=== PATIENT | female | born 1930 | race Caucasian/White ===

== ENCOUNTER 2019-12-12 11:45 | Inpatient (IN) | payer MEDICARE, OTHER ==
[~2019-12-12] VITALS: Ht 162.6 cm; Wt 64.4 kg
[2019-12-12] MEDS ORDERED: ASPIRIN EC325 M1 PO (11:53)
[2019-12-12] MEDS ORDERED: OMEPRAZOLE20 M1 PO (11:53)
[2019-12-12] MEDS ORDERED: MOBIC7.5 MG PO (11:53)
[2019-12-12] MEDS ORDERED: NORVASC2.5 MG PO (11:53)
[2019-12-12] MEDS ORDERED: LACTOBACILLUS ACIDOPHILUS (11:53)
[2019-12-12] MEDS ORDERED: ZOCOR20 MG PO (11:53)
[2019-12-12] MEDS ORDERED: ALL DAY ALLERGY (11:53)
[2019-12-12 14:10] LABS: BILIRUBIN NEGATIVE (NEGATIVE); GLUCOSE NEGATIVE (NEGATIVE); KETONE NEGATIVE (NEGATIVE); NITRITE NEGATIVE (NEGATIVE); UROBILINOGEN NORMAL (NORMAL)
[2019-12-12 14:11] LABS: BACTERIA FEW /hpf (NEGATIVE); EPITHELIAL CELLS OCC /hpf (0-5); RED CELLS - URINE 0-5 /hpf (0-5); WHITE CELLS - URINE OCC /hpf (NEGATIVE)
[2019-12-12 14:18] LABS: ANION GAP 13.4 mmol/L (8-16); CALCIUM 9.1 mg/dL (8.5-10.1); CARBON DIOXIDE 25.2 mmol/L (21.0-32.0); CREATININE - SERUM 1.1 mg/dL (0.6-1.3); POTASSIUM - SERUM 3.6 mmol/L (3.5-5.1)
[2019-12-12 14:19] LABS: APTT 33.1 SECONDS (22.8-39.4); INR 1.06 (0.85-1.17); PROTIME 13.7 SECONDS (11.6-15.0)
[2019-12-12 14:24] LABS: BILIRUBIN - TOTAL 0.66 mg/dL (0.2-1.3); PROTEIN - SERUM 8.2 g/dL (6.4-8.2)
[2019-12-12 14:25] LABS: BASOPHILS 0 % (0-2); EOSINOPHILS 1.6 % (0-7); HEMATOCRIT 43.1 % (36.0-48.0); HEMOGLOBIN 13.7 g/dL (12-16); LYMPHOCYTES 9.6 % (15-50); MCH 29.3 pg (26.0-34.0); MCHC 31.8 g/dL (31.0-37.0); MCV 92.3 fL (80.0-100.0); MEAN PLATELET VOLUME 11.7 fL (7.4-10.4); MONOCYTES 4.8 % (2-11); PLATELET COUNT 82 10x3/uL (130-400); RBC 4.67 10x6/uL (4.00-5.40); RDW 13.3 % (11.5-14.5); WBC 12.7 10x3/uL (4.8-10.8)
[2019-12-12 14:51] LABS: PLATELET ESTIMATE DECREASED
--- NOTE | 2019-12-12 14:56 | NUR ---
RECEIVED TO ROOM 2206 VIA STRETCHER FROM ER. A/O X3. SKIN INTACT. IMMOBILYZER IN PLACE TO RIGHT WRIST. DENIES NEEDS.
[2019-12-12 14:59] VITALS: BP 145/63; BMI 24.4
--- NOTE | 2019-12-12 18:00 | NUR ---
RESTING IN BED, 5 LB TRACTION TO LEFT LEG, NO DISTRESS NOTED, TOES PINK AND WARM, CONT TO MONITOR
[2019-12-12 18:20] VITALS: BP 129/72
[2019-12-12 20:00] VITALS: BP 165/80
[2019-12-13] VITALS: BP 126/67
[2019-12-13 04:00] VITALS: BP 179/92
--- NOTE | 2019-12-13 05:47 | NUR ---
CANCELLED NPO AFTER MIDNIGHT, NO SURGERY TODAY PER DR. MADISON. MRI MUST BE DONE FIRST.
[2019-12-13 05:49] LABS: BASOPHILS 0.1 % (0-2); EOSINOPHILS 3.5 % (0-7); HEMATOCRIT 42.8 % (36.0-48.0); HEMOGLOBIN 13.1 g/dL (12-16); IMMATURE GRANULOCYTES 0.3 % (0-5); LYMPHOCYTES 14.3 % (15-50); MCH 28.4 pg (26.0-34.0); MCHC 30.6 g/dL (31.0-37.0); MCV 92.8 fL (80.0-100.0); MEAN PLATELET VOLUME 12.7 fL (7.4-10.4); MONOCYTES 7.8 % (2-11); RBC 4.61 10x6/uL (4.00-5.40); RDW 13.4 % (11.5-14.5); WBC 10.6 10x3/uL (4.8-10.8)
[2019-12-13 05:55] LABS: PLATELET COUNT 202 10x3/uL (130-400)
[2019-12-13 06:15] LABS: ANION GAP 12.1 mmol/L (8-16); CALCIUM 8.8 mg/dL (8.5-10.1); CREATININE - SERUM 1.2 mg/dL (0.6-1.3); POTASSIUM - SERUM 4.1 mmol/L (3.5-5.1)
--- NOTE | 2019-12-13 06:30 | NUR ---
INFORMED PT OF NO SURGERY TODAY AND THAT SHE CAN EAT. PULLED PT UP IN BED AND REPOSITIONED. BROUGHT LARGE ICE WATER AND PUT IN SPECIAL REQUEST FOR BREAKFAST. PT RATES PAIN 0/10 UNLESS SHE IS MOVING. NO OTHER NEEDS. WILL CONTINUE TO MONITOR.
--- NOTE | 2019-12-13 08:00 | NUR ---
ASSESSMENT PER FLOW SHEET. PATIENT IS WITHOUT DISTRESS.FALL PREVENTION IN PLACE WITH BED ALARM. DOOR OPEN
[2019-12-13 09:50] VITALS: BP 112/64
[2019-12-13 13:40] VITALS: BP 127/64
[2019-12-13 16:00] VITALS: BP 97/49
--- NOTE | 2019-12-13 19:31 | NUR ---
PATIENT RESTING IN BED WITH NO S/S OF DISTRESS AND DENIES NEEDS AT THIS TIME. BED IN LOWEST POSITION AND CALL LIGHT WITHIN REACH. ENCOURAGED THE PATIENT TO CALL IF SHE HAS NEEDS. WILL CONTINUE TO MONITOR.
[2019-12-13 20:00] VITALS: BP 157/78
[2019-12-14] VITALS: BP 142/76
--- NOTE | 2019-12-14 | NUR ---
ASSISTED PATIENT ON AND OFF BEDPAN. PATIENT VOIDED A SMALL AMOUNT. PATIENT DENIES OTHER NEEDS AT THIS TIME. REMINDED PATIENT NOTHING BY MOUTH. PATIENT VERBALIZED UNDERSTANDING AND DENIES OTHER NEEDS AT THIS TIME. ENCOURAGED THE PATIENT TO CALL IF SHE HAS NEEDS. WILL CONTINUE TO MONITOR.
[2019-12-14 04:00] VITALS: BP 141/72
--- NOTE | 2019-12-14 04:23 | NUR ---
CHG BATH COMPLETED
[2019-12-14 04:35] LABS: BASOPHILS 0.2 % (0-2); EOSINOPHILS 8.7 % (0-7); HEMATOCRIT 42.4 % (36.0-48.0); HEMOGLOBIN 13.1 g/dL (12-16); IMMATURE GRANULOCYTES 0.2 % (0-5); LYMPHOCYTES 16.7 % (15-50); MCH 28.5 pg (26.0-34.0); MCHC 30.9 g/dL (31.0-37.0); MCV 92.4 fL (80.0-100.0); MEAN PLATELET VOLUME 12.4 fL (7.4-10.4); MONOCYTES 9.6 % (2-11); NEUTROPHILS 64.6 % (40-80); PLATELET COUNT 179 10x3/uL (130-400); RBC 4.59 10x6/uL (4.00-5.40); RDW 13.5 % (11.5-14.5); WBC 8.6 10x3/uL (4.8-10.8)
[2019-12-14 04:54] LABS: ANION GAP 11.3 mmol/L (8-16); CALCIUM 8.5 mg/dL (8.5-10.1); CARBON DIOXIDE 25.3 mmol/L (21.0-32.0); CREATININE - SERUM 1.3 mg/dL (0.6-1.3); POTASSIUM - SERUM 3.6 mmol/L (3.5-5.1)
[2019-12-14 09:05] VITALS: BP 156/74
[2019-12-14 12:38] VITALS: Ht 162.6 cm; Wt 64.4 kg
[2019-12-14 12:54] VITALS: BP 167/98
[2019-12-14 15:35] VITALS: BP 154/87
--- NOTE | 2019-12-14 19:30 | NUR ---
ASSISTED ONTO BEDPAN TO VOID BUT COULDNT. WILL CONT TO MONITOR.
--- NOTE | 2019-12-14 20:25 | NUR ---
LYING IN BED. ALERT AND ORIENTED X4. RESP EVEN AND NONLABORED. O2 @ 3L/NC. DSRG X3 NOTED TO LT HIP WITH OLD DRAINAGE MARKED. BRACE NOTED TO RT WRIST WITH BRUISING. DENIES PAIN AT THIS TIME. NONPROD COUGH AT TIMES. SALINE LOCK NOTED TO TO LT FOREARM. DENIES PAIN. SR ELEVATED X2. CL IN REACH. BED ALARM ON FOR PT SAFETY.
[2019-12-14 20:34] VITALS: BP 149/83
[2019-12-15] VITALS (7 sets, daily range): BP systolic 132–149; BP diastolic 65–76
--- NOTE | 2019-12-15 00:10 | NUR ---
UNABLE TO URINATE SINCE SURGERY. BLADDER SCANNED AT THIS TIME. STRAIGHT CATH INSERTED PER STERILE TECHNIQUE WITH IMMEDIATED RETURN OF 600 ML OF CLEAR YELLOW URINE. STATES SHE FEELS BETTER
--- NOTE | 2019-12-15 00:53 | NUR ---
SALINE LOCK OUT IN LT FOREARM. 22G INSERTED IN LT AC AFTER ATTEMPT X2. PT DAMON WELL.
--- NOTE | 2019-12-15 03:00 | NUR ---
RESTING WITH EYES CLOSED. RESP NONLABORED. NO DISTRESS. O2 IN USE. CL IN REACH.
[2019-12-15 05:32] LABS: BASOPHILS 0.1 % (0-2); EOSINOPHILS 4.5 % (0-7); HEMATOCRIT 38.5 % (36.0-48.0); HEMOGLOBIN 12.1 g/dL (12-16); IMMATURE GRANULOCYTES 0.3 % (0-5); LYMPHOCYTES 15.4 % (15-50); MCH 28.9 pg (26.0-34.0); MCHC 31.4 g/dL (31.0-37.0); MCV 91.9 fL (80.0-100.0); MEAN PLATELET VOLUME 12.8 fL (7.4-10.4); MONOCYTES 11.8 % (2-11); NEUTROPHILS 67.9 % (40-80); PLATELET COUNT 173 10x3/uL (130-400); RBC 4.19 10x6/uL (4.00-5.40); RDW 13.5 % (11.5-14.5); WBC 10.1 10x3/uL (4.8-10.8)
[2019-12-15 05:45] LABS: ANION GAP 15.2 mmol/L (8-16); CALCIUM 8.3 mg/dL (8.5-10.1); CARBON DIOXIDE 23.6 mmol/L (21.0-32.0); CREATININE - SERUM 1.2 mg/dL (0.6-1.3); POTASSIUM - SERUM 3.8 mmol/L (3.5-5.1)
--- NOTE | 2019-12-15 07:10 | NUR ---
REC'D IN WALKING ROUND PT RESTING WELL AT THIS TIME. RESP EVEN AND UNLABORED WITH NO DISTRESS NOTED. CAN EXPRESS NEEDS AN WANTS. NO C/O NOTED OR VOICED. ASSESSMENT COMPLETED. DRESSING NOTED TO LEFT HIP. BRACE NOTED TO LEFT WRIST. C/L IN REACH AT BEDSIDE.
--- NOTE | 2019-12-15 10:37 | NUR ---
I have reviewed this patient and I concur with the Shift Assessment completed by the Licensed Practical Nurse today this shift.
--- NOTE | 2019-12-15 12:22 | NUR ---
REHAB PRESCREENING Rehab referral received and chart reviewed. Ms. Perry is a good candidate for ARU. She is currently POD 1. Rehab will begin screen and accept her if she is willing to come and when her physicians feel she is appropriate for discharge. Thank you for this referral! Denita Ray, FILM PROCESSING UTILITY WORKER Rehab PD
--- NOTE | 2019-12-15 15:36 | NUR ---
PT TRANSFERRED DOWN TO MED 3 AT THIS TIME. REPORT CALLED AND GIVEN TO CHARGE NURSE. THIS NURSE INFORMED M3 NURSE OF PT INABILITY TO URINATE AT THIS TIME WITH TWO ATTEMPTS MADE TO CATH HER BUT WAS UNSUCCESSFUL.
--- NOTE | 2019-12-15 15:45 | NUR ---
PT TRANSFERRED FROM 2206 TO ROOM 1210. PT ALERT AND ORIENTED X 4. RESP EVEN AND UNLABORED. PT REPORTS PAIN 3/10 AT THIS TIME. SALINE LOC TO LEFT AC. SITE WITHOUT REDNESS OR EDEMA. DRESSING TO LEFT HIP WITH SMALL AMOUNT OF DRAINAGE NOTED. PULSES PALPABLE. ORIENTED TO ROOM. PT DENIES FURTHER NEEDS AT THIS TIME. CL WITHIN REACH. ENCOURAGED TO CALL WITH NEEDS.
--- NOTE | 2019-12-15 15:48 | NUR ---
OT NOTE: PT REQUIRED MAX A WITH BED MOB TASKS. PT COMPLETED FACE HYGIENE WITH SET UP. [id number] THANK YOU,KAMILA JAY
--- NOTE | 2019-12-15 17:40 | NUR ---
PT BLADDER SCANNED DUE TO INABILITY TO VOID. 375ML IDENTIFIED IN BLADDER. ATTEMPTED TO PLACE A 16 FR ROLBES CATHETER IN PT VIA STERILE TECHNIQUE, BUT UNSUCCESSFUL AT THIS TIME. CONTACTED CELY IN ICU ASKING FOR ASSISTANCE WITH PLACEMENT. SHE REPORTS SHE WILL COME AND ATTEMPT CATH PLACEMENT WHEN ABLE.
--- NOTE | 2019-12-15 20:25 | NUR ---
PLACED 16F ROBLES CATH. PLACED SCD'S ON PATIENT. GAVE PATIENT IS AND INSTRUCTED ON USE. PATIENT DENIES OTHER NEEDS AT THIS TIME. BED IN LOWEST POSITION AND CALL LIGHT WITHIN REACH. ENCOURAGED THE PATIENT TO CALL IF SHE HAS NEEDS. WILL CONTINUE TO MONITOR.
[2019-12-16 04:11] VITALS: BP 137/74
[2019-12-16 05:03] LABS: BASOPHILS 0.3 % (0-2); EOSINOPHILS 6.6 % (0-7); HEMATOCRIT 37.3 % (36.0-48.0); HEMOGLOBIN 11.6 g/dL (12-16); IMMATURE GRANULOCYTES 0.3 % (0-5); LYMPHOCYTES 16.9 % (15-50); MCH 28.4 pg (26.0-34.0); MCHC 31.1 g/dL (31.0-37.0); MCV 91.4 fL (80.0-100.0); MEAN PLATELET VOLUME 12.7 fL (7.4-10.4); MONOCYTES 13.5 % (2-11); NEUTROPHILS 62.4 % (40-80); PLATELET COUNT 187 10x3/uL (130-400); RBC 4.08 10x6/uL (4.00-5.40); RDW 13.5 % (11.5-14.5); WBC 11.2 10x3/uL (4.8-10.8)
[2019-12-16 05:37] LABS: ANION GAP 15.4 mmol/L (8-16); CALCIUM 8.5 mg/dL (8.5-10.1); CARBON DIOXIDE 23.4 mmol/L (21.0-32.0); CREATININE - SERUM 1.2 mg/dL (0.6-1.3); POTASSIUM - SERUM 3.8 mmol/L (3.5-5.1)
[2019-12-16 07:44] VITALS: BP 145/71
--- NOTE | 2019-12-16 07:51 | NUR ---
AWAKE AND ALERT. ORIENTED X3. NO C/O AT THIS TIME. LUNGS ARE CLEAR BILATERALLY, NO COUGH NOTED. REPORTS USING IS INSTRUCTED. SKIN IS INTACT WITHOUT REDNESS EXCEPT INCISION TO LEFT HIP WHICH HAS A DRY INTACT DRESSING IN PLACE. NO C/O NUMBNESS OR TINGLING AT THIS TIME. SL TO LEFT AC IS PATENT WITHOUT REDNESS AT INSERTION SITE. IMMOBILYZER IN PLACE TO RIGHT WRIST. ROBLES PATENT WITH MATTEO COLORED CLEAR URINE. DENIES NEEDS.
--- NOTE | 2019-12-16 09:27 | OP ---
PATIENT NAME: ARNOLD PEÑA MEDICAL RECORD: [id number] :[birth year] LOCATION:D.M3 D.1210 ADMISSION DATE:12/12/19 SURGEON: REGINE MADISON MD DATE OF OPERATION: 12/14/2019 PREOPERATIVE DIAGNOSIS: Intertrochanteric fracture of the left hip. POSTOPERATIVE DIAGNOSIS: Intertrochanteric fracture of the left hip. PROCEDURE: Cephalomedullary fixation for left intertrochanteric hip fracture (gamma nail). SURGEON: Regine Madison MD SOCIAL INSURANCE ADVISER: GORDON Edward INTRAOPERATIVE COMPLICATIONS: None. SUMMARY OF PATHOLOGIC FINDINGS: Consistent with preoperative radiographs, CT scan and MRI, the patient had a very minimally displaced intertrochanteric hip fracture that required fixation for ambulation. IMPLANTS USED: Gamma 3 nail. OPERATIVE SUMMARY IN DETAIL: After obtaining the appropriate preoperative orthopedic surgery consent as well as anesthetic consultation, evaluation and clearance, the patient was brought to the operating room and while in the hospital bed, she was adequately anesthetized, intubated, moved to the fracture table. She was held firmly to the fracture table using the belt and strap system. The patient's left leg was placed in the traction boot. The right leg was placed in the well leg wadsworth. Under fluoroscopic AP and lateral planes, the patient was seen to have an adequate reduction. The hip was then prepped and draped in routine sterile fashion. A small incision was made at the tip of the greater trochanter. A ball-tipped guidewire was passed. The appropriate reaming was then followed by placement of the nail to an inferior low position. Guidewire was put into place. The appropriate reaming was then followed by placement of the compression screw. Derotational device was then dropped and the compression screw was compressed. Distal locking guide was put in using the distal locking guide. Having completed this, radiographs were taken and submitted for radiologist review. The wounds irrigated and closed with #1 Vicryl, 2-0 Vicryl and skin lisa by GORDON Edward. The patient was awakened and taken to recovery room in stable condition. All final needle and sponge counts were correct. TRANSINT:[id number] Voice Confirmation ID: [id number] DOCUMENT ID: [id number] REGINE MADISON MD at 0927 CC: [id number] DICTATION DATE: 12/15/19 1255 CASKET TRIMMER: 12/15/19 1645 ADM IN [facility] [address] [id number]
--- NOTE | 2019-12-16 09:30 | NUR ---
ATE ABOUT HALF OF BREAKFAST. TOOK AM MEDS IN APPLESAUCE. REPORTS SWALLOWING DIFFICULTY THAT IS NOT NEW. WILL MONITOR.
--- NOTE | 2019-12-16 11:08 | NUR ---
STANDING AT BEDSIDE WITH PT.NO C/O AT THIS TIME.
[2019-12-16 12:30] VITALS: BP 127/70
--- NOTE | 2019-12-16 13:28 | NUR ---
ATE ONLY ABOUT 10%OF LUNCH BUT DRANK AN ENTIRE ENSURE. DENIES NEEDS.
--- NOTE | 2019-12-16 13:48 | NUR ---
Nutrition Follow-up: POD 2 L hip gamma nail. Pt reports decreased appetite. Ate ~50% of breakfast this AM, but only ~10% of lunch with an entire Ensure. C/o some difficulty chewing/swallowing; reports previous esophageal dilation. Diet: Regular Wt: 142# (12/13) -BM Labs reviewed Meds noted: Protonix, electrolyte protocol -Encourage PO intake and honor food preferences; added dental soft to current diet order. Pt may benefit from FORMING OPERATOR eval. -+Ensure with meals. -Monitor wt. -RD following.
--- NOTE | 2019-12-16 13:48 | NUR ---
OT NOTE: PT PERFORMED BETTER TODAY. CONT TO REQUIRE CONSTANT REMINDERS FOR WT BEARING PRECAUTIONS IN R UE AND L LE. BED MOB WITH MOD ASSIST FOR SUPINE TO SIT; SITTING BALANCE WAS GOOD ON SIDE OF BED. SIT TO STAND WITH MOD ASSIST X 2 WITH USE OF PLATFORM WALKER. PT HAVING DIFFICULTY WITH COORDINATING MOVEMENTS WITH USE OF PLATFORM.. WILL ATTEMPT B PLATFORMS TOMORROW TO SEE IF THIS HELPS. ABLE TO SCOOT SEVERAL FEET TO R AND L WITH MAX ASSIST WITH WALKER MGMT AND CONSTANT CUES FOR WT BEARING. MAX ASSIST TO PAOLA L SOCK AND MIN ASSIST FOR R SOCK; MIN ASSIST FOR GROOMING TASKS. OCTAVIA GARCIA, OTR/L [id number]
--- NOTE | 2019-12-16 14:10 | NUR ---
OT NOTE: PT COMPLETED BED MOB WITH MOD/MAX A. PT REQUIRED CONSTANT CUES TO ADHERE TO PRECAUTIONS OF NWB. PT COMPLETED UB HYGIENE TASKS WITH MIN/MODA. [id number] THANK YOU,KAMILA JAY
--- NOTE | 2019-12-16 15:30 | NUR ---
REPOSITIONED IN BED FOR COMFORT. DENIES NEEDS. NO CHANGES AT THIS TIME.
[2019-12-16 17:29] VITALS: BP 141/66
--- NOTE | 2019-12-16 18:19 | NUR ---
REFUSED MEAL BUT DRANK ALL OF ENSURE. NO C/O AT THIS TIME. DENIES NEEDS. NO CHANGES NOTED.
--- NOTE | 2019-12-16 19:56 | MORECARE ---
CASE MANAGEMENT DISCHARGE SUMMARY PATIENT: ARNOLD PEÑA UNIT: [id number] ADM DATE: 12/12/19 AGE: 89 : [birth year] SEX: F ROOM/BED: D.1210 AUTHOR: PANCHITO CHAIDEZ PHYSICIAN: REFERRING PHYSICIAN: DAVID OLSON MD DATE OF SERVICE: 12/16/19 Discharge Plan Patient Name: ARNOLD PEÑA Facility: [facility]:[place] : 1930 Planned Disposition: Inpatient Rehab Anticipated Discharge Date: Discharge Date: Expected LOS: Initial Reviewer: [email or web address] Initial Review Date: 12/12/2019 Generated: 12/16/19 8:56 pm DCPIA - Discharge Planning Initial Assessment Updated by [id number]: Anisha Mixon on 12/16/19 7:54 pm * Is the patient Alert and Oriented? Yes * How many steps to enter\exit or inside your home? * PCP PETE * [facility] * Preadmission Environment Home Alone * ADLs Independent * Other Equipment WALKER, WALK IN SHOWER, SC, MED-ALERT * Verbal permission to speak to the caregivers and representatives has been obtained from the patient. Yes * Community resources currently utilized None * Additional services required to return to the preadmission environment? No * Can the patient safely return to the preadmission environment? Yes * Has this patient been hospitalized within the prior 30 days at any hospital? No Patient Name: ARNOLD PEÑA Page [id number] at 1955 All edits/amendments must be made on the electronic document DICTATION DATE: 12/16/191955 PURIFICATION OPERATOR: ALEJANDRA 12/16/191955 RPT#: [id number] DC DATE: STATUS: ADM IN [facility] [address] [place] [address] END OF REPORT
[2019-12-16 20:00] VITALS: BP 126/62
--- NOTE | 2019-12-16 20:00 | NUR ---
PT SITTING UP IN BED WITHOUT DISTRESS, AOX4. IV LEFT AC SL. O2 2L/NC. SCDS AND CADEN HOSE IN PLACE. ENCOURAGED INCENTIVE SPIROMETER HOURLY WHILE AWAKE. REPOSITIONED PT FOR COMFORT. HS MEDS GIVEN AT THIS TIME. ROBLES IN PLACE DRAINING CLEAR YELLOW URINE. DENIES OTHER NEEDS. BED ALARM ON, CL IN REACH, WILL CTM
--- NOTE | 2019-12-16 20:03 | MORECARE ---
CASE MANAGEMENT DISCHARGE SUMMARY PATIENT: ARNOLD PEÑA UNIT: [id number] ADM DATE: 12/12/19 AGE: 89 : [birth year] SEX: F ROOM/BED: D.1210 AUTHOR: KAYLYNN,DOC PHYSICIAN: REFERRING PHYSICIAN: DAVID OLSON MD DATE OF SERVICE: 12/16/19 Discharge Plan Patient Name: ARNOLD PEÑA Facility: [facility]:[place] : 1930 Planned Disposition: Inpatient Rehab Anticipated Discharge Date: Discharge Date: Expected LOS: Initial Reviewer: [email or web address] Initial Review Date: 12/12/2019 Generated: 12/16/19 9:03 pm Comments DCP- Discharge Planning Updated by [id number]: Anisha Mixon on 12/16/19 6:[address] Patient Name: ARNOLD PEÑA Admission Status: ER Accout number: [id number] Admission Date: 12-12-2019 : 1930 Admission Diagnosis:UNSP FRACTURE OF LEFT FEMUR, INIT ENCNTR FOR CLOSED FRA Attending: DAVID OLSON Current LOS: 4 Anticipated DC Date: Planned Disposition: Inpatient Rehab Primary Insurance: MEDICARE A & B Discharge Planning Comments: CM met with patient to complete initial dc planning assessment. CM educated patient on the CM role and verbal consent given by patient to complete assessment. Patient lives at home alone where she is independent with her care. At discharge patient plans to go to inpatient rehab at [facility] and feels this is a safe discharge. CM discussed availability of home health, rehab services, and medical equipment. She will have family to drive her home. Patient denied known discharge needs at this time. CM will continue to follow and will assist as needed with dc plans/needs. Life Skills Teacher: Anisha Mixon DCPIA - Discharge Planning Initial Assessment Updated by [email or web address]: Anisha Mixon on 12/16/19 7:54 pm * Is the patient Alert and Oriented? Yes * How many steps to enter\exit or inside your home? * PCP PETE * [facility] * Preadmission Environment Home Alone * ADLs Independent * Other Equipment WALKER, WALK IN SHOWER, SC, MED-ALERT * Verbal permission to speak to the caregivers and representatives has been obtained from the patient. Yes * Community resources currently utilized None * Additional services required to return to the preadmission environment? No * Can the patient safely return to the preadmission environment? Yes * Has this patient been hospitalized within the prior 30 days at any hospital? No Coverage Notice Reviewer: [id number] Roberta Mixon Notice Issued Date-Time: 12/16/2019 11:30 Notice Type: Patient Choice Letter Notice Delivered To: Patient Relationship to Patient: Self Nursing Staff Development Coordinator Name: Delivery Method: HAND - Hand Delivered Tiffanie Days: Prior Verbal Notification: Yes Recipient Understood Notice: Yes Recipient Signature: Med Rec Note Co-signed by Attending: Coverage Notice Comment: Last DP export: 12/16/19 6:56 p Patient Name: ARNOLD PEÑA Page [phone] at 2002 All edits/amendments must be made on the electronic document DICTATION DATE: 12/16/192002 PER DIEM PHYSICAL THERAPIST ASSISTANT: ALEJANDRA 12/16/192002 RPT#: [id number] DC DATE: STATUS: ADM IN [facility] [address] [place] [address] END OF REPORT
--- NOTE | 2019-12-16 21:54 | NUR ---
PT SLEEPING COMFORTABLY AT THIS TIME, WILL CTM
[2019-12-17] VITALS: BP 128/64
--- NOTE | 2019-12-17 00:30 | NUR ---
PT LYING IN BED RESTING WITHOUT NEEDS. WILL CTM
[2019-12-17 04:00] VITALS: BP 126/63
--- NOTE | 2019-12-17 05:00 | NUR ---
REPOSITIONED PT FOR COMFORT. STATES LOWER BACK IS ACHY BUT NO OTHER COMPLAINTS. DENIES NEEDS. CL IN REACH, WILL CTM
[2019-12-17 05:51] LABS: BASOPHILS 0.1 % (0-2); EOSINOPHILS 5.1 % (0-7); HEMATOCRIT 34.6 % (36.0-48.0); HEMOGLOBIN 10.8 g/dL (12-16); IMMATURE GRANULOCYTES 0.4 % (0-5); LYMPHOCYTES 17.1 % (15-50); MCH 28.6 pg (26.0-34.0); MCHC 31.2 g/dL (31.0-37.0); MCV 91.5 fL (80.0-100.0); MEAN PLATELET VOLUME 12.2 fL (7.4-10.4); MONOCYTES 12.5 % (2-11); NEUTROPHILS 64.8 % (40-80); PLATELET COUNT 217 10x3/uL (130-400); RBC 3.78 10x6/uL (4.00-5.40); RDW 13.4 % (11.5-14.5); WBC 12.8 10x3/uL (4.8-10.8)
[2019-12-17 06:03] LABS: ANION GAP 12.7 mmol/L (8-16); CALCIUM 8.9 mg/dL (8.5-10.1); CARBON DIOXIDE 25.5 mmol/L (21.0-32.0); CREATININE - SERUM 1.3 mg/dL (0.6-1.3); POTASSIUM - SERUM 4.2 mmol/L (3.5-5.1)
[2019-12-17 07:22] VITALS: BP 135/72
--- NOTE | 2019-12-17 08:01 | NUR ---
AWAKE AND ALERT. ORIENTED X3. NO C/O AT THIS TIME. LUNGS ARE CLEAR BILATERALLY, NO COUGH NOTED. REPORTS USING IS INSTRUCTED. SKIN IS INTACT WITHOUT REDNESS EXCEPT INCISION TO LEFT HIP WHICH HAS A DRY INTACT DRESSING IN PLACE. BRACE IN PLACE TO RIGHT WRIST WELL. SL TO LEFT AC IS PATENT WITHOUT REDNESS AT INSERTION SITE. ROBLES PATENT WITH MATTEO URINE. SCD'S AND TEDS IN PLACE. DENIES NEEDS.
[2019-12-17] MEDS ORDERED: ELIQUIS2.5 MG PO (09:01)
[2019-12-17] MEDS ORDERED: ULTRAM50 MG PO (09:01)
--- NOTE | 2019-12-17 10:10 | NUR ---
UP TO CHIAR AT BEDSIDE WITH PT USING RW MOD ASSIST. DENIES NEEDS.
--- NOTE | 2019-12-17 12:07 | MORECARE ---
CASE MANAGEMENT DISCHARGE SUMMARY PATIENT: ARNOLD PEÑA UNIT: [id number] ADM DATE: 12/12/19 AGE: 89 : [birth year] SEX: F ROOM/BED: D.1210 AUTHOR: KAYLYNNDOC PHYSICIAN: REFERRING PHYSICIAN: DAVID OLSON MD DATE OF SERVICE: 12/17/19 Discharge Plan Patient Name: ARNOLD PEÑA Facility: [facility]:[place] : 1930 Planned Disposition: Inpatient Rehab Anticipated Discharge Date: Discharge Date: Expected LOS: Initial Reviewer: [id number] Initial Review Date: 12/12/2019 Generated: 12/17/19 1:06 pm Comments DCP- Discharge Planning Updated by [email or web address]: Naima Quiñones on 12/17/19 11:[address] Patient Name: ARNOLD PEÑA Encounter No: [id number] : 1930 Primary Insurance: MEDICARE A & B Anticipated DC Date: Planned Disposition: Inpatient Rehab External Planned Provider: : DCP follow-up note: Patient and family in agreement with discharge plan. No changes to plan. Patient signed the DC IMM. Denies any needs at this time. Case management will follow and assist as needed. Naima Quiñones DCP- Discharge Planning Updated by [id number]: Anisha Mixon on 12/16/19 6:[address] Patient Name: ARNOLD PEÑA Admission Status: ER Accout number: [id number] Admission Date: 12-12-2019 : 1930 Admission Diagnosis:UNSP FRACTURE OF LEFT FEMUR, INIT ENCNTR FOR CLOSED FRA Attending: DAVID OLSON Current LOS: 4 Anticipated DC Date: Planned Disposition: Inpatient Rehab Primary Insurance: MEDICARE A & B Discharge Planning Comments: CM met with patient to complete initial dc planning assessment. CM educated patient on the CM role and verbal consent given by patient to complete assessment. Patient lives at home alone where she is independent with her care. At discharge patient plans to go to inpatient rehab at [facility] and feels this is a safe discharge. CM discussed availability of home health, rehab services, and medical equipment. She will have family to drive her home. Patient denied known discharge needs at this time. CM will continue to follow and will assist as needed with dc plans/needs. Allopathic Doctor: Anisha Mixon DCPIA - Discharge Planning Initial Assessment Updated by [id number]: Anisha Mixon on 12/16/19 7:54 pm * Is the patient Alert and Oriented? Yes * How many steps to enter\exit or inside your home? * PCP PETE * [facility] * Preadmission Environment Home Alone * ADLs Independent * Other Equipment WALKER, WALK IN SHOWER, SC, MED-ALERT * Verbal permission to speak to the caregivers and representatives has been obtained from the patient. Yes * Community resources currently utilized None * Additional services required to return to the preadmission environment? No * Can the patient safely return to the preadmission environment? Yes * Has this patient been hospitalized within the prior 30 days at any hospital? No Coverage Notice Reviewer: [id number] - Anisha Mixon Notice Issued Date-Time: 12/16/2019 11:30 Notice Type: Patient Choice Letter Notice Delivered To: Patient Relationship to Patient: Self Car Wash Manager Name: Delivery Method: HAND - Hand Delivered Tiffanie Days: Prior Verbal Notification: Yes Recipient Understood Notice: Yes Recipient Signature: Med Rec Note Co-signed by Attending: Coverage Notice Comment: Reviewer: [id number] - Naima Quiñones Notice Issued Date-Time: 12/17/2019 12:00 Notice Type: IM Discharge Notice Notice Delivered To: Patient Relationship to Patient: Self Car Wash Manager Name: Delivery Method: HAND - Hand Delivered Tiffanie Days: Prior Verbal Notification: Recipient Understood Notice: Yes Recipient Signature: Yes Med Rec Note Co-signed by Attending: Coverage Notice Comment: Last DP export: 12/16/19 7:03 p Patient Name: ARNOLD PEÑA Page [phone] at 1207 All edits/amendments must be made on the electronic document DICTATION DATE: 12/17/19 1206 HUMAN PERFORMANCE PROFESSOR: ALEJANDRA 12/17/19 1206 RPT#: [id number] DC DATE: STATUS: ADM IN [facility] [address] [place] [address] END OF REPORT
[2019-12-17 12:15] VITALS: BP 92/72
--- NOTE | 2019-12-17 13:18 | NUR ---
ATE OVER HALF OF LUNCH AND DRANK MOST OF AN ENSURE. BACK TO BED PER PT AND POSITIONED FOR COMFORT. DENIES NEEDS.
[2019-12-17 15:54] VITALS: BP 110/48
--- NOTE | 2019-12-17 16:23 | NUR ---
BLADDER TRAINING IN PROGRESS. C/O NEED TO VOID. CLAMP RELEASED WTIH 100 CC CLEAR MATTEO URING RETURNED. ROBLES RECLAMPED AT THIS TIME.
--- NOTE | 2019-12-17 18:00 | NUR ---
FEELING THE URGE TO VOID. ROBLES UNCLAMPED WITH 100 CC RETURN CLEAR YELLOW URINE. D/C WITH TIP INTACT WITHOUT DIFFICULTY.
--- NOTE | 2019-12-17 19:09 | NUR ---
REPORT CALLED TO PILY BRAGA LPN ON REHAB. ALL QUESTIONS ANSWERED. WILL TRANSPORT TO REHAB VIA BED.
--- NOTE | 2019-12-18 10:09 | MORECARE ---
CASE MANAGEMENT DISCHARGE SUMMARY PATIENT: ARNOLD PEÑA UNIT: [id number] ADM DATE: 12/12/19 AGE: 89 : [birth year] SEX: F ROOM/BED: D.1210 AUTHOR: [email or web address] PHYSICIAN: REFERRING PHYSICIAN: DAVID OLSON MD DATE OF SERVICE: 12/18/19 Discharge Plan Patient Name: ARNOLD PEÑA Facility: [facility]:[place] : 1930 Planned Disposition: Inpatient Rehab Anticipated Discharge Date: Discharge Date: 12/17/2019 Expected LOS: Initial Reviewer: [email or web address] Initial Review Date: 12/12/2019 Generated: 12/18/19 11:09 am Comments DCP- Discharge Planning Updated by [email or web address]: Naima Quiñones on 12/17/19 11:[address] Patient Name: ARNOLD PEÑA Encounter No: [id number] : 1930 Primary Insurance: MEDICARE A & B Anticipated DC Date: Planned Disposition: Inpatient Rehab External Planned Provider: : DCP follow-up note: Patient and family in agreement with discharge plan. No changes to plan. Patient signed the DC IMM. Denies any needs at this time. Case management will follow and assist as needed. Naima Quiñones DCP- Discharge Planning Updated by [email or web address]: Anisha Mixon on 12/16/19 6:[address] Patient Name: ARNOLD PEÑA Admission Status: ER Accout number: [id number] Admission Date: 12-12-2019 : 1930 Admission Diagnosis:UNSP FRACTURE OF LEFT FEMUR, INIT ENCNTR FOR CLOSED FRA Attending: DAVID OLSON Current LOS: 4 Anticipated DC Date: Planned Disposition: Inpatient Rehab Primary Insurance: MEDICARE A & B Discharge Planning Comments: CM met with patient to complete initial dc planning assessment. CM educated patient on the CM role and verbal consent given by patient to complete assessment. Patient lives at home alone where she is independent with her care. At discharge patient plans to go to inpatient rehab at [facility] and feels this is a safe discharge. CM discussed availability of home health, rehab services, and medical equipment. She will have family to drive her home. Patient denied known discharge needs at this time. CM will continue to follow and will assist as needed with dc plans/needs. [employer] Barista: Anisha Mixon DCPIA - Discharge Planning Initial Assessment Updated by [email or web address]: Anisha Mixon on 12/16/19 7:54 pm * Is the patient Alert and Oriented? Yes * How many steps to enter\exit or inside your home? * PCP [facility] * [facility] * Preadmission Environment Home Alone * ADLs Independent * Other Equipment WALKER, WALK [place], MED-ALERT * Verbal permission to speak to the caregivers and representatives has been obtained from the patient. Yes * Community resources currently utilized None * Additional services required to return to the preadmission environment? No * Can the patient safely return to the preadmission environment? Yes * Has this patient been hospitalized within the prior 30 days at any hospital? No Coverage Notice Reviewer: [id number] - Anisha Mixon Notice Issued Date-Time: 12/16/2019 11:30 Notice Type: Patient Choice Letter Notice Delivered To: Patient Relationship to Patient: Self Taffy Candy Maker Name: Delivery Method: HAND - Hand Delivered Tiffanie Days: Prior Verbal Notification: Yes Recipient Understood Notice: Yes Recipient Signature: Med Rec Note Co-signed by Attending: Coverage Notice Comment: Reviewer: [email or web address] - Naima Quiñones Notice Issued Date-Time: 12/17/2019 12:00 Notice Type: IM Discharge Notice Notice Delivered To: Patient Relationship to Patient: Self Taffy Candy Maker Name: Delivery Method: HAND - Hand Delivered Tiffanie Days: Prior Verbal Notification: Recipient Understood Notice: Yes Recipient Signature: Yes Med Rec Note Co-signed by Attending: Coverage Notice Comment: Last DP export: 12/17/19 11:07 a Patient Name: ARNOLD PEÑA Page 19306 at 1009 All edits/amendments must be made on the electronic document DICTATION DATE: 12/18/[address] DECORATOR: ALEJANDRA 12/18/19 1009 RPT#: [id number] DC DATE:12/17/19 STATUS: DIS IN [facility] [address] [place] [address] END OF REPORT
== END 2019-12-17 19:43 | DRG 481 ==
LOC: D.ER 11:45 → D.MS 13:47 → D.M3 13:47
PROVIDERS: Emergency Medicine; Orthopaedic Surgery; ADMIT Internal Medicine Nephrology; ATTEND Internal Medicine Nephrology
PROC: 0QSC36Z Reposition Left Lower Femur with Intramedullary Internal Fixation Device, Percutaneous Approach (ICD-10-PCS; principal; 2019-12-14 11:30)
DX: S72.145A Nondisplaced intertrochanteric fracture of left femur, initial encounter for closed fracture (principal); S52.592A Other fractures of lower end of left radius, initial encounter for closed fracture; R54 Age-related physical debility; I10 Essential (primary) hypertension; E78.5 Hyperlipidemia, unspecified; K21.9 Gastro-esophageal reflux disease without esophagitis; W19.XXXA Unspecified fall, initial encounter